=== PATIENT | female | born 2000 | race Caucasian/White ===

== ENCOUNTER 2022-03-13 18:50 | Emergency (ER) | payer OTHER, SELFPAY ==
[2022-03-13 19:28] VITALS: BP 127/90; PULSE 115; RESP 15; TEMP 37.2; O2SAT 100
[2022-03-13 20:22] LABS: Strep Group A RT-PCR NOT DETECTED (Negative)
[2022-03-13 20:37] LABS: Influenza A QL RT-PCR Negative (Negative); Influenza B QL RT-PCR Negative (Negative); RSV RNA, RT-PCR Negative (Negative); SARS-CoV-2 RNA PCR Positive
--- NOTE | 2022-03-13 22:32 | ED.URI ---
HPI - URI/Sore Throat General Chief Complaint: Upper Respiratory Infection Stated Complaint: cough/diff breathing/dizzy Time Seen by Provider: 03/13/22 22:11 History of Present Illness HPI Narrative: This is a 22-year-old female past medical history of depression and asthma, presents emergency department complaining of cough and fatigue for the past day. She states the cough is dry. She denies loss of consciousness, though does feel lightheaded. She denies vomiting and is able to tolerate fluids. She has no other complaints today. Related Data Allergies Allergy/AdvReac Type Severity Reaction Status Date / Time No Known Allergies Allergy Verified 03/13/22 19:31 Review of Systems Review of Systems: CONSTITUTIONAL: Denies fever, chills, or sweats. EYES: Denies visual changes, redness, or discharge. ENT: Sore throat, rhinorrhea, congestion denies otalgia. CARDIOVASCULAR: Denies chest pain, palpitations, or edema. RESPIRATORY: Dry cough, denies hemoptysis, or dyspnea. GASTROINTESTINAL: Denies abdominal pain, nausea, vomiting, or diarrhea. GENITOURINARY: Denies dysuria or hematuria. SKIN: Denies rash or itching. MUSCULOSKELETAL: Denies back pain, joint pain, or myalgia. NEUROLOGIC: Headache, lightheadedness denies numbness, dizziness, or weakness. PSYCHIATRIC: Denies anxiety or depression. [facility] Past Medical History Medical History Asthma Depression Social History Social History (Updated 03/14/22 @ 00:04 by Jorge Ramirez MD) Smoking status: Never smoker Alcohol intake: never Substance use: never Exam Narrative: GENERAL: Well-developed, well-nourished, appears tired HEAD: Normocephalic, atraumatic. EYES: PERRLA and EOMI. ENT: Nares clear, no rhinorrhea or epistaxis. Mucous membranes moist. Oropharynx without tonsillar hypertrophy exudate or other lesions. CHEST: Clear to auscultation. No respiratory distress. No wheezes rales or rhonchi HEART: Regular rate and rhythm. No murmur heard. Normal peripheral pulses. ABDOMEN: Soft, nontender, nondistended, normal active bowel sounds. EXTREMITIES: Normal range of motion. No edema. SKIN: Warm, dry, no rash. NEURO: No focal deficits. Alert and oriented x3. PSYCH: Normal mood and affect. Course Course Emergency Course: 22:34 - The patient tested positive for COVID, negative for influenza and negative for strep. Will treat with Tylenol for headache. She is able to tolerate fluids at home. I do not suspect the need for Paxlovid at this time. Discussed return emergency precautions including signs/symptoms of respiratory distress. The patient voiced understanding is comfortable with plan. All questions answered to her satisfaction. Vital Signs Vital signs: Vital Signs Temperature 99.0 F 03/13/22 19:28 Pulse Rate 115 H 03/13/22 19:28 Respiratory Rate 15 03/13/22 19:28 Blood Pressure 127/90 03/13/22 19:28 Pulse Oximetry 100 03/13/22 19:28 Oxygen Delivery Room Air 03/13/22 19:28 Temperature 99.0 F 03/13/22 19:28 Pulse Rate 115 H 03/13/22 19:28 Respiratory Rate 15 03/13/22 19:28 Blood Pressure 127/90 03/13/22 19:28 Pulse Oximetry 100 03/13/22 19:28 Oxygen Delivery Room Air 03/13/22 19:28 MDM - URI/Sore Throat MDM Narrative Medical decision making narrative: Plan: Labs, reassess Differential Diagnosis Differential diagnosis: Likely upper respiratory infection, influenza and other (COVID, viral pharyngitis, other) Lab Data Labs: Lab Results 03/13/22 03/13/22 Range/Units 19:34 19:34 Influenza A (RT-PCR) Negative (Negative) Influenza B (RT-PCR) Negative (Negative) RSV (RT-PCR) Negative (Negative) SARS-CoV-2 RNA (RT-PCR) Positive A Group A Strep (PCR) Not detected (Negative) Discharge Plan Discharge Clinical Impression: COVID-19 Patient Disposition: Home, Self-Care Condition: Stable Instructions: Antib
[2022-03-13] MEDS: ACETAMINOPHEN 500 MG TABLET 1000 MG PO (22:46)
--- OUTSIDE RECORDS SUMMARY | 2023-05-10 10:55 | XMS_ITS | Referral Summary ---
Author Name Unknown Organization [facility] Address [facility] [place], [place] [id number] [place] [id number] Care Team Providers Care Seat Maker Name Role Phone Gaye Gallegos MD Primary Care Provider [phone] Reason for Referral * Speech Therapy (Urgent) - Authorized Specialty Diagnoses / Procedures Referred By Contac t Referred To Contact SPEECH THERAPY Diagnoses Central auditory processing disorder Procedures OFFICE/OUTPATIENT NEW LOW MDM 30-44 MINUTES OFFICE/OUTPT VISIT,NEW,LEVL IV OFFICE/OUTPT VISIT,NEW,LEVL V OFFICE/OUTPT VISIT,EST,LEVL III OFFICE/OUTPT VISIT,EST,LEVL IV OFFICE/OUTPT VISIT,EST,LEVL V Gaye Gallegos MD [facility] [place] [address] [place] [id number] Referral ID Status Reason Start Date Expiration Date Visits Requested Visits Authorized [id number] Authorized Specialty Services 02/20/2023 06/20/2023 16 16 Scheduling Instructions Eval & treat 's name: [facility] NPI # [id number] Tax ID # [id number] Phone number [phone] Fax number: [phone] Reason for referral: [id number], Insurance: Appointment: 02/27/2023 @ 11:00 am [facility] Reason for Visit * Reason Onset Date Comments
== END 2022-03-13 23:18 | disposition home or self-care (01) ==
PROVIDERS: Emergency Medicine; Emergency Provider Preventive Medicine Aerospace Medicine
DX: U07.1 COVID-19 (principal); J45.909 Unspecified asthma, uncomplicated
CPT/HCPCS: 87637; 87651; 99283; A9270

== ENCOUNTER 2023-02-27 10:47 | Outpatient (RCR) | payer OTHER, SELFPAY ==
--- NOTE | 2023-02-27 12:14 | STOPEVDC ---
Assessment and note entered by LEONEL Mcclelland Thank you for referring Trang Flores to [facility].? An evaluation has been completed. No further treatment is needed. Evaluation Information Assessment Status Evaluation Diagnosis Central auditory processing disorder Onset Subjective Information Patient arrived to the clinic and attended ST evaluation independently. Reported Pain Level Pain Score 0: Self Report Assessment ST Clinical Summary Trang Flores is a 23 year old female with a diagnosis of auditory processing disorder. She also reports anxiety, depression and attention deficit diagnoses that play a role in her difficulty in auditory processing. Trang attends [employer] and is seeking ways to improve her performance in school. In a quiet room, Trang completed all areas of an informal evaluation in auditory comprehension and reading comprehension within normal limits. 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 Trang was advised to inquire with her doctor about implementing small changes to her anxiety and/or attention medication/plan of care. She was also advised to reach out to [employer]'s Student Care and Advocacy Coordinator to request all of her lectures to be recorded and posted by her professors in addition to written materials being provided. Trang was agreeable to all recommendations. Because Trang completed all portions of her evaluation grossly within normal limits, skilled ST services are not indicated at this time. Thank you for this referral. Plan of Care ST Services Indicated No
== END 2023-02-27 13:01 | disposition home or self-care (01) ==
LOC: ANHST 10:47
PROVIDERS: PCP Family Medicine
DX: H93.25 Central auditory processing disorder (principal)
CPT/HCPCS: 92507; 92523

== ENCOUNTER 2023-04-12 14:44 | Emergency (ER) | payer OTHER, SELFPAY ==
--- NOTE | ~2023-04-12 | CT_ITS ---
EXAMINATION: CT abdomen pelvis w con DATE: 04/12/2023 16:37 INDICATION: Abdominal pain. TECHNIQUE: Computed tomography (CT) of the abdomen and pelvis was performed with 100 mL Omnipaque 350 intravenous contrast. Automated exposure control and iterative reconstruction technique were employe d. The dose-length product was 1591.72 mGy-cm. COMPARISON: None. FINDINGS: The visualized portions of the lung bases demonstrate minimal atelectasis. No pleural effus ion. The heart size is normal. No pericardial effusion. There is diffuse hepatic steatosis. The gallb ladder, spleen, the pancreas, adrenal glands, and kidneys are normal. There are no dilated loops of b owel. The appendix is normal. There are no pathologically enlarged lymph nodes. There is no free intr aperitoneal fluid. There is mild thoracic and lumbar spondylosis. IMPRESSION: 1. Diffuse hepatic steatosis. Reviewed, dictated and finalized at location E. 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
[2023-04-12 15:07] VITALS: BP 139/79; PULSE 89; RESP 20; TEMP 36.9; O2SAT 98
[2023-04-12 15:55] LABS: Basophils Percent Auto 0.1 % (0.2-1.2); Eosinophils Absolute Auto 0.1 K/mm3 (0-0.3); Eosinophils Percent Auto 0.5 % (0-4.4); Hematocrit 40.8 % (37.0-47.0); Hemoglobin 13.4 g/dL (12.0-15.0); Immature Granulocyte Absolute 0.03 K/mm3 (0.00-0.031); Immature Granulocyte Percent A 0.3 % (0-0.5); Lymphocytes Absolute Auto 2.13 K/mm3 (0.9-3.2); Lymphocytes Percent Auto 23.1 % (18.3-44.2); Mean Corpuscular HGB Conc 32.8 g/dl (32-36); Mean Corpuscular Volume 82.1 fl (80-100); Mean Platelet Volume 9.2 fl (7.4-10.4); Monocytes Absolute Auto 0.4 K/mm3 (0.1-0.6); Monocytes Percent Auto 4.7 % (2.6-8.5); Neutrophils Absolute Auto 6.6 K/mm3 (1.3-6.7); Neutrophils Percent Auto 71.3 % (45.5-73.1); Platelet Count Result 288 k/mm3 (150-375); Red Blood Count 4.97 M/mm3 (4.2-5.4); White Blood Count 9.2 K/mm3 (4.5-10.0)
[2023-04-12 15:59] LABS: Appearance Urine Clear (Clear); Bacteria Urine None Seen /hpf; Bilirubin Urine Negative (Negative); Blood Urine Trace (Negative); Color Urine Yellow (Yellow); Glucose Urine UA Negative (Negative); Ketones Urine Negative (Negative); Leukocyte Esterase Ur Trace LEU/UL (Negative); Nitrate Urine Negative (Negative); Non Pathogenic Casts 0-2; Protein Urine Negative (Negative); RBC Urine 0-2 /hpf (0-2); Specific Grav Ur 1.014 (1.001-1.035); Squamous Epithelial Cell Urine Occasional /hpf (Few); Urobilinogen Urine 0.2 mg/dL (<2.0); pH Urine 7.5 (5.0-9.0)
[2023-04-12 16:02] LABS: Add Urine Microscopic? YES
[2023-04-12 16:04] LABS: Alanine Aminotransferase 24 U/L (6-35); Albumin Level 4.2 g/dL (3.5-5.1); Alkaline Phosphatase 103 U/L (38-126); Anion Gap 10 mmol/L (8-16); Aspartate Amino Transferase 22 U/L (14-36); Bilirubin,Total 0.6 mg/dL (0.2-1.3); Blood Urea Nitrogen 5 mg/dL (7-17); Carbon Dioxide 21 mmol/L (22-30); Chloride 109 mmol/L (98-107); Estimated CRCL calculation 145 ml/min; Estimated Glomerular Filt Rate > 60; Glucose 86 mg/dL (65-110); Lipase 38 U/L (23-300); Potassium 3.4 mmol/L (3.4-5.0); Sodium 140 mmol/L (137-145)
--- NOTE | 2023-04-12 16:09 | ED.ABDPAIN ---
HPI - Abdominal Pain General Chief Complaint: Abdominal Pain Stated Complaint: abd pain and nausea Time Seen by Provider: 04/12/23 16:09 History of Present Illness HPI narrative: 23 years old white female drove herself to the emergency room complaining of feeling tired and weak started 4 days ago, went to Urgent Care 1 day later tested negative for flu, COVID and RSV, 1 day later started feeling cold shivering all over, associated with nausea and vomiting and loose stool,, yesterday started having abdominal diffuse abdominal pain. History of IBS, anxiety, depression. Patient denies sick contact Related Data Allergies Allergy/AdvReac Type Severity Reaction Status Date / Time No Known Allergies Allergy Verified 04/12/23 15:12 Review of Systems Review of Systems: All systems reviewed & are unremarkable except as noted in HPI and below PMFSH Past Medical History Medical History Asthma Depression Social History Social History Smoking status: Never smoker Alcohol intake: never Substance use: never Exam Narrative: General appearance: Well-developed, well-nourished Skin: Normal color Head: Normocephalic, nontraumatic Eyes: Clear conjunctiva ENT: Oropharynx normal, ears normal, nose normal Neck: Supple, nontender Chest and respiratory: Airway patent, no respiratory distress, no accessory muscle use Heart: Regular rate/rhythm Abdomen: Soft, diffuse abdominal tenderness , no organomegaly, quiet bowel sounds Vascular: Normal peripheral pulses, normal capillary refill. Musculoskeletal: Normal range of motion, nontender back Neurologic: Alert and oriented ?3, [employer] COUNSELOR is normal as tested, no gross motor deficit Course Vital Signs Vital signs: Vital Signs Temperature 36.9 C 04/12/23 15:07 Pulse Rate 89 04/12/23 15:07 Respiratory Rate 20 04/12/23 15:07 Blood Pressure 139/79 04/12/23 15:07 Pulse Oximetry 98 04/12/23 15:07 Oxygen Delivery Room Air 04/12/23 15:07 Temperature 36.6 C 04/12/23 17:30 Pulse Rate 78 04/12/23 17:30 Respiratory Rate 18 04/12/23 17:30 Blood Pressure 120/74 04/12/23 17:30 Pulse Oximetry 98 04/12/23 17:30 Oxygen Delivery Room Air 04/12/23 15:07 MDM - Abdominal Pain MDM Narrative Medical decision making narrative: Differential diagnosis viral gastroenteritis, IBS flare, colitis, diverticulitis Blood workup today showed no acute abnormalities, urinalysis is clean, CT abdomen and pelvis showed no acute abnormalities. In the ED patient received 2 L of normal saline, Zofran, Toradol with moderate improvement. Discharged on dicyclomine, Zofran and clear liquid diet. Differential Diagnosis Differential diagnosis: Likely other (As above) Medical Records Attestation: I reviewed the patient's medical records. Lab Data Attestation: I reviewed the patient's lab results. 04/12/23 15:45 04/12/23 15:45 Labs: Lab Results 04/12/23 04/12/23 Range/Units 15:45 16:04 WBC 9.2 (4.5-10.0) K/mm3 RBC 4.97 (4.2-5.4) M/mm3 Hgb 13.4 (12.0-15.0) g/dL Hct 40.8 (37.0-47.0) % MCV 82.1 (80-100) fl MCH 27.0 (26-34) pg MCHC 32.8 (32-36) g/dl RDW 13.0 (11.5-14.5) % Plt Count 288 (150-375) k/mm3 MPV 9.2 (7.4-10.4) fl Immature Gran % (Auto) 0.3 (0-0.5) % Neut % (Auto) 71.3 (45.5-73.1) % Lymph % (Auto) 23.1 (18.3-44.2) % [place] % (Auto) 4.7 (2.6-8.5) % Eos % (Auto) 0.5 (0-4.4) % Baso % (Auto) 0.1 L (0.2-1.2) % Lymph # (Auto) 2.13 (0.9-3.2) K/mm3 [place] # (Auto) 0.4 (0.1-0.6) K/mm3 Eos # (A
[2023-04-12] MEDS: ONDANSETRON INJ 4 MG/2 ML VIAL IV PUSH (16:21)
[2023-04-12] MEDS: SODIUM CHLORIDE 0.9% IV 1,000 ML 999 ML IV CONT (16:21)
[2023-04-12] MEDS: HYDROmorphone HCL INJ (*CRX) 1 MG/ML SYR 0.5 MG IV PUSH (16:22)
[2023-04-12 16:30] VITALS: BP 118/76; PULSE 80; RESP 16; TEMP 36.6; O2SAT 98
[2023-04-12 16:46] LABS: Influenza A QL RT-PCR Negative (Negative); Influenza B QL RT-PCR Negative (Negative); RSV RNA, RT-PCR Negative (Negative); SARS-CoV-2 RNA PCR Negative (Negative)
[2023-04-12 17:30] VITALS: BP 120/74; PULSE 78; RESP 18; TEMP 36.6; O2SAT 98
[2023-04-12] MEDS: KETOROLAC 30 MG/ML VIAL (*BKC) IV PUSH (18:25)
[2023-04-12 18:30] VITALS: BP 118/78; PULSE 78; RESP 18; TEMP 36.9; O2SAT 100
== END 2023-04-12 19:03 | disposition home or self-care (01) ==
PROVIDERS: Emergency Medicine; Emergency Provider Emergency Medicine; PCP Family Medicine
DX: R11.2 Nausea with vomiting, unspecified (principal); Z20.822 Contact with and (suspected) exposure to COVID-19; R82.998 Other abnormal findings in urine; J45.909 Unspecified asthma, uncomplicated; K76.0 Fatty (change of) liver, not elsewhere classified; K58.9 Irritable bowel syndrome, unspecified
CPT/HCPCS: 36415; 74177; 80053; 81001; 81025; 83690; 85025; 87086; 87637; 96361; 96374; 96375; 99284; J1170; J1885; J2405; J7030; Q9967